=== PATIENT | male | born 2000 | race African-American/Black ===

== ENCOUNTER 2022-12-26 17:09 | Inpatient (IN) | payer OTHER, SELFPAY ==
[2022-12-26 17:00] VITALS: BP 143/74; PULSE 98; RESP 18; TEMP 36.4; O2SAT 100
[2022-12-26 18:19] VITALS: BMI 25.7
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
[2022-12-26] MEDS: OLANZapine 5 MG TABLET PO (21:51)
[2022-12-26] MEDS: traZODone HCL 50 MG TABLET PO (21:51)
[2022-12-26 22:00] VITALS: BP 136/72; PULSE 92; RESP 18; TEMP 36.4; O2SAT 100
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
--- NOTE | 2022-12-27 05:29 | PC.NURSE ---
pt signed a 3 day notice on 12/26. up on 12/31.
[2022-12-27 06:00] VITALS: BP 128/64; PULSE 100; RESP 16; TEMP 36.4; O2SAT 100
[2022-12-27] MEDS: amLODIPine Besylate 10 MG TABLET PO (08:46)
[2022-12-27] MEDS: OLANZapine 10 MG TABLET PO (08:46)
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
[2022-12-27] MEDS: traZODone HCL 50 MG TABLET PO (21:12)
[2022-12-27] MEDS: OLANZapine 5 MG TABLET PO (21:12)
[2022-12-27] MEDS: hydrOXYzine HCL 25 MG TABLET PO (21:20)
[2022-12-28 08:20] VITALS: BP 125/65; PULSE 95; RESP 16; TEMP 36.1; O2SAT 100
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
[2022-12-28 17:57] VITALS: BP 140/65; PULSE 89; TEMP 36.3; O2SAT 100
--- NOTE | 2022-12-28 19:52 | PC.NURSE ---
Patient refused HS dose of Zyprexa 5 mg po. Patient said I'm all set, I don't need them tonight.
[2022-12-29 09:00] VITALS: BP 134/83; PULSE 94; RESP 18; TEMP 35.8; O2SAT 100
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
[2022-12-29 18:00] VITALS: BP 129/86; PULSE 90; TEMP 36.1; O2SAT 98
--- NOTE | 2022-12-29 19:32 | PC.NURSE ---
Patient reported I'm good, I don't need any medications . Refused HS Zyprexa 5 mg po.
--- NOTE | 2022-12-29 20:31 | PC.NURSE ---
Patient declined flu vaccination.
[2022-12-30 06:00] VITALS: BP 150/61; PULSE 87; TEMP 36.6; O2SAT 98
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
[2022-12-30 19:30] VITALS: BP 136/68; PULSE 99; TEMP 36.5; O2SAT 97
--- NOTE | 2022-12-30 19:52 | PC.NURSE ---
Patient refused HS Zyprexa 5 mg po scheduled; he said Dr. Salinas told me I don't have to take medications .
[2022-12-31 08:38] VITALS: BP 130/90; PULSE 92; RESP 16; TEMP 36.2; O2SAT 100
--- NOTE | 2022-12-31 09:18 | PC.NURSE ---
pt refused AM scheduled medications they told me I don't need to take meds
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
== END 2022-12-31 11:39 | disposition home or self-care (01) | DRG 752 ==
PROVIDERS: Admitting Provider Psychiatry & Neurology Psychiatry; Visit Provider Psychiatry & Neurology Psychiatry
DX: F60.2 Antisocial personality disorder (principal); F31.9 Bipolar disorder, unspecified; Z87.820 Personal history of traumatic brain injury

== ENCOUNTER → 2022-12-26 17:09 | Outpatient (BNV) | payer OTHER, SELFPAY | PROVIDERS: Admitting Provider Psychiatry & Neurology Psychiatry; Visit Provider Student in an Organized Health Care Education/Training Program | DX: Z02.2 Encounter for examination for admission to residential institution (principal) | CPT/HCPCS: 99429 ==

== ENCOUNTER → 2022-12-26 17:09 | Outpatient (BNV) | payer OTHER, SELFPAY | PROVIDERS: Admitting Provider Psychiatry & Neurology Psychiatry; Visit Provider Psychiatry & Neurology Psychiatry | DX: F60.2 Antisocial personality disorder (principal); F31.2 Bipolar disorder, current episode manic severe with psychotic features | CPT/HCPCS: 99231; 99232; 99233 ==

== ENCOUNTER 2025-01-04 23:14 | Emergency (ER) | payer OTHER, SELFPAY ==
[2025-01-04 23:22] VITALS: BP 130/61; BP 144/80; PULSE 80; PULSE 92; RESP 16; TEMP 36.4; O2SAT 98; O2SAT 99; BMI 33.1
--- NOTE | 2025-01-04 23:34 | PC.NURSE ---
multiple #'s for contact to [facility] marc called with no answer. unsure what the facility requires for med clearance. 2 #s provided by patient: [phone] online: [phone]
[2025-01-04 23:54] LABS: Hematocrit 38.5 % (42.0-52.0); Hemoglobin 13.4 g/dl (14.0-18.0); Imm Gran Abs Auto 0.03 X10*3/uL (0.00-0.03); Imm Gran Pct Auto 0.5 % (0.0-0.4); Lymphocytes Absolute Auto 2.0 X10*3/uL (1.2-4.9); MANUAL DIFF FLAG NO; Mean Corpuscular HGB Conc 34.8 g/dl (31.0-36.0); Mean Corpuscular Hemoglobin 29.1 pg (27.0-33.0); Mean Corpuscular Volume 83.5 fL (80.0-98.0); NRBC Abs Auto 0.000 X10*3/uL (0.0-0.012); NRBC Pct Auto 0.0 /100WBC (0.0-0.2); Platelet Count 240 X10*3/uL (160-400); Red Blood Count 4.61 X10*6/uL (4.60-5.80); White Blood Count 6.5 X10*3/uL (4.8-10.8)
--- NOTE | 2025-01-04 23:58 | PC.NURSE ---
spoke with forensic medical examiner Araceli at [phone]; stated they need a medical professional to determine if patient is stable to return to [facility]. Jesse OLIVARES made aware and would like to continue with obtaining labs/hansen. pt okay with this. labs and urine obtained. newscast director would like a call back upon d/c ?uber to be sent for patient to be returned.
[2025-01-05 00:14] LABS: Alanine Aminotransferase 38 U/L (0-40); Albumin Level 4.6 g/dL (3.5-5.0); Alkaline Phosphatase 58 U/L (39-117); Anion Gap 11 (12-20); Aspartate Amino Transferase 35 U/L (5-37); Blood Urea Nitrogen 8 mg/dL (9-16); Calcium 9.1 mg/dL (8.4-10.2); Carbon Dioxide 29 mmol/L (22-29); Chloride 108 mmol/L (96-108); Creatinine Clr Calc Pharmacy 158.4; Estimated Glomerular Filt Rate > 60; Potassium 3.7 mmol/L (3.3-5.1); Sodium 144 mmol/L (135-145); Total Protein 7.2 g/dL (6.5-8.0)
[2025-01-05 00:16] LABS: Cannabinoid Screen Urine POSITIVE (Not Detect)
--- NOTE | 2025-01-05 00:18 | ED.GENADULT ---
HPI - General Adult General Chief complaint: ETOH/Substance Use Stated complaint: etoh Time Seen by Provider: 01/04/25 23:50 Source: patient and EMS Mode of arrival: EMS Limitations: no limitations History of Present Illness ED Provider: Jesse OLIVARES HPI narrative: The patient is a 24-year-old male presenting to the ED via EMS for medical evaluation and clearance to remain at his rehab facility. The patient arrived with the ER today for rehab but admitted alcohol and marijuana use, staff found the patient to the ED to be medically cleared to remain at the facility. Patient has no complaints. Related Data Allergies Allergy/AdvReac Type Severity Reaction Status Date / Time No Known Allergies Allergy Verified 01/04/25 23:25 Review of Systems Review of Systems: Yes all other systems are reviewed and are negative PMFSH Past Medical History Medical History (Updated 01/05/25 @ 00:22 by Jesse Brown PA-C) Antisocial personality disorder Bipolar disorder, unspecified Social History Social History Household Members: Family Household Members Other:: Grandmother Housing: House Do you presently have visiting nurse or other home services: No Patient Tobacco Use Status: Refuse Tobacco use screen Second Hand Smoke Exposure: No Substance Use Type: Marijuana Advance Directives: No Do you have a plan to hurt others: No Plan service: No Sexual orientation: Straight/Heterosexual Physical Exam ED Vital Signs: Vital Signs - 24 hr 01/04/25 23:22 Temperature 97.6 F Pulse Rate 92 Respiratory Rate 16 Blood Pressure 130/61 Pulse Oximetry 98 Oxygen Delivery Method Room Air BMI result Body Mass Index 33.1 CONSTITUTIONAL: The patient appears non-toxic, well nourished and in no acute distress. Vital signs as documented. HEAD: Atraumatic, normocephalic. EYES: EOMs grossly intact, pupils equal, conjunctiva clear, no exudate. ENT: Nares patent, no discharge. Airway patent, no audible stridor, visible mucosa is pink and moist without noted lesions. NECK: Trachea is midline, no obvious masses or gross abnormalities. CHEST: Symmetric movement, normal appearance. LUNGS: LS present and CTAB, no w/r/r. Non-labored work of breathing. CARDIAC: Regular Rhythm, S1/S2 appreciated, no murmurs, rubs or gallops. ABDOMEN: Abdomen soft and non-tender x4 quadrants, no palpable masses or organomegaly. : Deferred. EXTREMITIES: Normal tone, moves all extremities spontaneously without reported pain. No obvious acute injury or deformity noted. NEURO: Alert and oriented x3, CN II-XII appear grossly intact. Cerebellar Functioning grossly intact. No obvious sensory or motor deficits. Speech clear and appropriate. PSYCH: normal affect, appropriate eye contact, fluid speech, with appropriate response to questioning. No reported suicidality or homicidality. SKIN: Warm, dry, color appropriate, normal turgor. No rashes noted. Medical Decision Making Medical Decision Making [facility] Narrative: 12:21 AM 01/05/2025 (Elisha OLIVARES): The patient is a 24-year-old male presenting to the ED via EMS for medical evaluation and clearance to remain at his rehab facility. The patient arrived with the ER today for rehab but admitted alcohol and marijuana use, staff found the patient to the ED to be medically cleared to remain at the facility. Patient has no complaints. In the ED patient is well-appearing, no acute findings on exam. Patient's laboratory evaluation is reassuring, no acute findings. Patient is medically cleared and will be discharged to return to his facility. Admission/Observation Consideration of admission/observation: Escalation of care including admission/observation considered Lab Data [facility] Lab Attestation statement: I reviewed the patient's lab results. 01/04/25 23:50 01/04/25 23:50 Labs: Lab Results 01/04/25 01/04/25 Range/Units 23:47 23:50 WBC 6.5 (4.8-10.8) X10*3/uL RBC 4.61 (4.60-5.80) X10*6/uL Hgb 13.4 L (14.0-18.0) g/dl Hct 38.5 L (42.0-52.0) % MCV 83.5 (80.0-98.0) fL MCH 29.1 (27.0-33.0) pg MCHC 34.8 (31.0-36.0) g/dl RDW 14.6 (11.0-16.0) % Plt Count 240 (160-400) X10*3/uL MPV 10.4 (9.4-12.4) fL Immature Gran % (Auto) 0.5 H (0.0-0.4) % Neut % (Auto) 56.5 (45-73) % Lymph % (Auto) 31.1 (20-40) % Josephine % (Auto) 8.8 (2-11) % Eos % (Auto) 2.6 (0-4) % Baso % (Auto) 0.5 (0-2) % Lymph # (Auto) 2.0 (1.2-4.9) X10*3/uL Josephine # (Auto) 0.6 (0.1-1.2) X10*3/uL Eos # (Auto) 0.2 (0.0-0.4) X10*3/uL Baso # (Auto) 0.0 (0.0-0.2) X10*3/uL Abs Immat Gran (auto) 0.03 (0.00-0.03) X10*3/uL Absolute Neuts (auto) 3.7 (2.0-8.3) x10*3/uL Absolute Nucleated RBC 0.000 (0.0-0.012) X10*3/uL Nucleated RBC % (auto) 0.0 (0.0-0.2) /100WBC Sodium 144 (135-145) mmol/L Potassium 3.7 (3.3-5.1) mmol/L Chloride 108 (96-108) mmol/L Carbon Dioxide 29 (22-29) mmol/L Anion Gap 11 L (12-20) BUN 8 L (9-16) mg/dL Creatinine 0.94 (0.5-1.4) mg/dL Estim Creat Clear Calc 158.4 Estimated GFR > 60 Random Glucose 86 (60-115) mg/dL Calcium 9.1 (8.4-10.2) mg/dL Total Bilirubin 0.3 (0.0-1.0) mg/dL AST 35 (5-37) U/L ALT 38 (0-40) U/L Alkaline Phosphatase 58 (39-117) U/L Total Protein 7.2 (6.5-8.0) g/dL Albumin 4.6 (3.5-5.0) g/dL Urine Opiates Screen Not Detected (Not Detect) Ur Buprenorphine Scrn Not Detected (Not Detect) ng/mL Ur Oxycodone Screen Not Detected (Not Detect) ng/mL Urine Methadone Screen Not Detected (Not Detect) ng/mL Urine Fentanyl Screen Not Detected (Not Detect) Ur Barbiturates Screen Not Detected (Not Detect) Ur Phencyclidine Scrn Not Detected (Not Detect) Ur Amphetamines Screen Not Detected (Not Detect) U Benzodiazepines Scrn Not Detected (Not Detect) Urine Cocaine Screen Not Detected (Not Detect) U Marijuana (THC) Screen POSITIVE H (Not Detect) Ethyl Alcohol 106 mg/dL Discharge Plan Discharge Clinical Impression: Alcohol dependence Patient Disposition: Home, Self-Care Instructions: Alcohol Dependence (ED) Additional Instructions: Thank you for choosing [facility] for your care today. Thankfully your laboratory evaluation today is reassuring, there was no evidence of infection, kidney dysfunction, electrolyte imbalance, or anemia. Your vital signs stable and your examination is reassuring. At this time there is no indication for admission to the hospital or continued ED observation, and you are medically cleared to return to your rehab facility. Please follow up with your primary care physician for re-evaluation and continued preventative care. If you do not have a primary care physician, please call the [facility] at [phone] to establish a new primary care physician. While waiting to establish your new primary care physician, you can call our Walk-in [facility] at [phone] for non-emergency needs. Please return to the emergency department if you develop a fever over 100.4 that does not improve with Tylenol or Ibuprofen, recurrent vomiting, or any other new or worsening symptoms or concerns. Print Language: Bangladeshi
[2025-01-05 01:50] VITALS: BP 126/84; PULSE 85; RESP 16; TEMP 36.8; O2SAT 98
== END 2025-01-05 01:03 | disposition home or self-care (01) ==
PROVIDERS: Emergency Provider Emergency Medicine
DX: F10.20 Alcohol dependence, uncomplicated (principal); F12.90 Cannabis use, unspecified, uncomplicated; Z02.83 Encounter for blood-alcohol and blood-drug test
CPT/HCPCS: 36415; 80053; 80307; 85025; 99282; 99283

== ENCOUNTER 2025-01-31 09:29 | Outpatient (AMB) | payer OTHER, SELFPAY ==
[2025-01-31 09:31] VITALS: BP 136/72; PULSE 78; TEMP 36.7; O2SAT 96; BMI 32.4
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
== END 2025-01-31 10:02 | disposition home or self-care (01) ==
LOC: HO.HMCFMS 09:30
PROVIDERS: PCP Student in an Organized Health Care Education/Training Program; Visit Provider Student in an Organized Health Care Education/Training Program
DX: F31.9 Bipolar disorder, unspecified (principal); F60.2 Antisocial personality disorder; F12.90 Cannabis use, unspecified, uncomplicated; Z87.891 Personal history of nicotine dependence; E66.9 Obesity, unspecified; Z23 Encounter for immunization

== ENCOUNTER → 2025-01-31 09:29 | Outpatient (BNVA) | payer OTHER, SELFPAY | PROVIDERS: Visit Provider Student in an Organized Health Care Education/Training Program | DX: Z28.21 Immunization not carried out because of patient refusal (principal); F31.9 Bipolar disorder, unspecified; F60.2 Antisocial personality disorder; F12.90 Cannabis use, unspecified, uncomplicated; E66.9 Obesity, unspecified; Z87.891 Personal history of nicotine dependence; Z68.32 Body mass index [BMI] 32.0-32.9, adult | CPT/HCPCS: 90471; 96127 ==

== ENCOUNTER 2025-02-15 10:14 | Outpatient (REF) | payer OTHER, SELFPAY ==
--- OUTSIDE RECORDS SUMMARY | 2025-02-15 12:03 | XMS_ITS | Clinical Summary ---
Author Organization [facility] ity Address [address] [place] [address] Care Team Providers Care Contact Lens Manufacturer Name Role Phone Unavailable Primary Care Provider Unavailabl e Social History Tobacco Use Types Packs/Day Years Used Date Smoking Tobacco: Never Assessed Sex and Gender Information Value Date Recorded Sex Assigned at Not on file Legal Sex Male 7:41 PM EST Gender Identity Not on file Sexual Orientation Not on file Plan of Treatment Health Maintenance Due Date Last Done Comments HPV Vaccines (1 - Male 3-dos e series) 2017 Meningococcal B Vaccine (1 o f 2 - Standard) 2018 DTaP,Tdap,and Td Vaccines (1 - Tdap) 2021 Hepatitis B Vaccines (1 of 3 - 19+ 3-dose series) 2021 Depression Screening 04/06/2024 COVID-19 Vaccine (1 - 2024-2 6 season) 2024 Influenza Vaccine (#1) 2024 RSV Immunization Adult Patie nts (1 - 1-dose 75+ series) 2077 HIB Vaccines Aged Out No longer eligi ble based on patient's age to complete this topic Hepatitis A Vaccines Aged Out No long er eligible based on patient's age to complete this topic IPV Vaccines Aged Out No longer eligi ble based on patient's age to complete this topic MMR Vaccines Aged Out No longer eligi ble based on patient's age to complete this topic Meningococcal ACWY Vaccine Aged Out N o longer eligible based on patient's age to complete this topic Pneumococcal Vaccine: Pediat rics (0 to 5 Years) and At-Risk Patients (6 to 49 Years) Aged Out No longer eligible b ased on patient's age to complete this topic RSV Immunization Patients Un albert 20 months Aged Out No longer eligible b ased on patient's age to complete this topic Varicella Vaccines Aged Out No longer eligible based on patient's age to complete this topic
[2025-02-15 13:17] LABS: Appearance Urine Turbid; Glucose Urine UA Negative (Negative); PH 6.0 (5.0-9.0); Specific Gravity - Urine >= 1.030 (1.005-1.025); UMIC TRIGGER UACC YES
[2025-02-15 13:21] LABS: UACC Culture Trigger YES
[2025-02-15 14:16] LABS: Alanine Aminotransferase 13 U/L (0-40); Albumin Level 4.9 g/dL (3.5-5.0); Alkaline Phosphatase 77 U/L (39-117); Anion Gap 13 (12-20); Aspartate Amino Transferase 35 U/L (5-37); Blood Urea Nitrogen 19 mg/dL (9-16); Calcium 10.0 mg/dL (8.4-10.2); Carbon Dioxide 27 mmol/L (22-29); Chloride 105 mmol/L (96-108); Cholesterol 134 mg/dL (<200); Estimated Glomerular Filt Rate > 60; HDL Cholesterol 49 mg/dL (>40); Magnesium 1.9 mg/dL (1.6-2.6); Potassium 3.8 mmol/L (3.3-5.1); Sodium 141 mmol/L (135-145); Total Protein 7.7 g/dL (6.5-8.0); Triglycerides 60 mg/dL (<150)
[2025-02-15 15:03] LABS: Folate 7.2 ng/mL (> or = 4.0); Vitamin B12 238 pg/mL (200-900)
[2025-02-16 04:06] LABS: HBS Num1 291.49 mIU/mL (0-7.99); HBsAGNum1 0.42 S/CO (0.00-0.99); HIV Num 1 0.08 S/CO (0.00-0.99); Hepatitis B Surface Antigen Negative (Negative); ~HepC Num1 0.09 S/CO (0.00-0.79); ~Hepatitis B Surface Antibody REACTIVE (Nonreactive); ~Hepatitis C Antibody Nonreactive (Nonreactive)
[2025-02-19 14:58] LABS: VITAMIN D (1,25 OH) D3 31 pg/mL; Vit D (1,25-Dihydroxy) Total 31 pg/mL (18-72); Vitamin D (1,25 OH) D2 <8 pg/mL
== END 2025-02-15 10:15 | disposition home or self-care (01) ==
LOC: HO.HKASLDS 10:14
PROVIDERS: PCP Student in an Organized Health Care Education/Training Program; Visit Provider Student in an Organized Health Care Education/Training Program
DX: Z13.6 Encounter for screening for cardiovascular disorders (principal); Z13.1 Encounter for screening for diabetes mellitus; Z13.89 Encounter for screening for other disorder; Z11.4 Encounter for screening for human immunodeficiency virus [HIV]; Z20.6 Contact with and (suspected) exposure to human immunodeficiency virus [HIV]
CPT/HCPCS: 36415; 80053; 80061; 81001; 81003; 82607; 82652; 82746; 83036; 83735; 86706; 86803; 87086; 87340; 87389

== ENCOUNTER 2025-03-01 10:38 | Outpatient (AMB) | payer OTHER, SELFPAY ==
--- NOTE | 2025-03-01 10:43 | A.OFFPC_ITS ---
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 I provided a detailed explanation regarding the procedure, including the use of local anesthesia in the form of a penile nerve block to numb the area. I described the simplicity and speed of the procedure, which can be performed in an office setting. The patient demonstrated understanding of the explanation, including the potential need for a referral to urology for further evaluation and procedural planning. Patient was informed and verbally consented to the use of an ambient scribe for clinic note documentation during this visit. History of Present Illness The patient is a 24-year-old male presenting with inquiries about circumcision and review of lab results. Low-Normal Vitamin B12 Level: The patient had recent laboratory work which revealed a vitamin B12 level of 238, categorizing it as low-normal. This finding was presented during the lab review discussion. The patient did not report specific symptoms directly attributed to this vitamin level during the conversation, apart from possible fatigue and weakness noted elsewhere. Substance Use In Remission: The patient disclosed a prior history of marijuana and opioid use; however, he stated he is no longer using these substances. The patient did not report any ongoing issues related to substance withdrawal or cravings during the visit. Surgical History: - No surgeries reported by the patient. Social History: - The patient resides with their grandmo ther. - The patient reported previous use of m arijuana and opioids but stated he is no longer engaging in their use. Diagnostic Results: - Labs: - Vitamin B12 level: 238 (low no rmal) Review of Systems - General: Reports fatigue and weakness. 10-point ROS reviewed and negative excep t as noted in HPI Past Medical History - Previous history of marijuana and opio id use. Health Maintenance - Consideration for circumcision referra l to urology as per patient?s expressed interest and discussion. Physical Exam General: Well-appearing, in no acute distress. Vital signs: Within normal limits. HEENT: Normocephalic, atraumatic. PERRLA, EOMI. Conjunctiva clear, sclera anicteric. Oropharynx clear, mucous membranes moist. TMs intact bilaterally. Neck: Supple, no lymphadenopathy, no thyromegaly, no JVD or carotid bruits. Cardiovascular: RRR, normal S1/S2, no murmurs, rubs, or gallops. Peripheral pulses 2+ and symmetric. No edema. Respiratory: Lungs clear to auscultation bilaterally, no wheezes, rales, or rhonchi. Normal effort. Abdomen: Soft, non-tender, non-distended. Normoactive bowel sounds. No hepato splenomegaly, no masses. MSK: Full range of motion, no joint swelling or deformity. Normal gait. Skin: Warm, dry, intact. No rashes, lesions, or pallor. Neuro: Alert and oriented x3. Cranial nerves II-XII intact. Strength 5/5 throughout. Sensation intact. Reflexes 2+ symmetric. Normal coordination and gait. Psych: Appropriate mood and affect. Normal judgment and insight. Reports past use of marijuana and opioids, but states he is no longer smoking. Plan 1. Low-Normal Vitamin B12 Level - Vitamin B12 supplementation prescribed , to be taken daily, to address potential fatigue and weakness. 2. Substance Use In Remission - No additional interventions required a s the patient reports cessation. Monitoring for any signs of relapse in subsequent visits. Discussion Notes I discussed with the patient the low-normal vitamin B12 level observed in recent laboratory tests. I explained the potential symptomatology related to this finding, including feelings of fatigue, and advised vitamin B12 supplementation to rectify levels. The patient was agreeable to this plan, and a prescription was provided. Additionally, the patient expressed interest in circumcision; I explained the procedure, including the anesthesia involved and possible referral to urology for assessment and scheduling. The patient was advised that the referral process may vary in timing. A follow-up visit in six months is recommended to reassess vitamin levels and discuss any further plans. Patient Instructions - Take one vitamin B12 tablet every nigh t as prescribed. - Consider scheduling a follow-up visit for vitamin level reassessment and further discussion of circumcision. - Remain observant for any symptoms rela leopoldo to vitamin deficiency, such as weakness or fatigue. Medical Decision Making The patient presented for a review of laboratory results showing a low-normal vitamin B12 level, accompanied by inquiries about circumcision. Given the low- normal vitamin B12 level of 238, I prescribed oral vitamin B12 supplementation to mitigate symptoms of weakness and fatigue. The patient's previous substance use history is noted, with his self-reported cessation negating the need for immediate intervention. The discussion also addressed the patient's interest in circumcision, where I provided insight into the procedure and its requirements, suggesting a potential referral to urology for surgical evaluation. The patient was informed to follow up in six months for further monitoring and discussions as needed. Total Time Statement 20 min Total time spent caring for the patient today includes pre-visit chart review, documentation, review of laboratory and diagnostic imaging results, medication reconciliation, medically necessary evaluation, counseling on diagnoses, care coordination, ordering appropriate tests and medications, review of tests performed by other providers, reporting test results to the patient, and communication with other healthcare providers. [facility] Medical History (Updated 03/01/25 @ 11:04 by Franky Tee MD) Male circumcision Former substance use Low vitamin B12 level Phimosis Antisocial personality disorder Bipolar disorder, unspecified Family History Mother No problems noted. Father No problems noted. Maternal Grandmother HTN (hypertension) Social History Household Members: Family Household Members Other:: Grandmother Housing: House Do you presently have visiting nurse or other home services: No Patient Tobacco Use Status: Refuse Tobacco use screen e-Cigarette/Vaping Use: Never Used Second Hand Smoke Exposure: No Substance Use Type: Marijuana service: No Current occupational status: unemployed Sexual orientation: Straight/Heterosexual Cognitive needs: No Hearing needs: No Vision needs: No Questionnaire Thrive Questionnaire Date Thrive assessed: 01/31/25 I am a: Patient What is your living situation today?: I do not have a steady places to live I am temporarily staying with others Within the past 12 months, did the food you bought not last and you didn't have the money to get more?: I choose not to answer this question Within the past 12 months, did you worry whether your food would run out before you got money to buy more?: I choose not to answer this question Do you have trouble paying for medicines?: No Do you have trouble getting transportation to medical appointments?: No Do you have trouble paying your heating and electricity bill?: No Do you have trouble taking care of your child, family member or friend?: No Do you have trouble with day-to-day activities such as bathing, preparing meals, shopping, managing finances, etc.?: I choose not to answer this question Are you currently unemployed and looking for a job?: Yes Are you interested in more education?: Yes Currently or been in a relationship where the following occur: No concerns reported THRIVE Score: 1 KIET-7 AMB Questionnaire KIET-7 Date KIET - 7 assessed: 01/31/25 Source: Developed by Drs. Rom Roque, Heidy Joyner, Ronnie Darnell and colleagues, with an educational sahil from [employer]. Review of Systems Narrative Review of Systems - General: Reports fatigue and weakness. 10-point ROS reviewed and negative except as noted in HPI Physical exam (Primary Care) Vital Signs: Last Vital Signs Temp 97.7 F 03/01/25 10:47 Pulse 70 03/01/25 10:47 Resp 16 03/01/25 10:47 BP 122/72 03/01/25 10:47 Pulse Ox 98 03/01/25 10:47 Oxygen Delivery Method Room Air 03/01/25 10:47 BMI result Body Mass Index 30.9 Tobacco/Smoking Status: Tobacco use Status Tobacco use date assessed 01/31/25 03/01/25 10:45 Patient Tobacco Use Status Refuse Tobacco use screen 03/01/25 10:45 e-Cigarette/Vaping Use Never Used 03/01/25 10:49 Thrive Assessment: Date of Thrive Assessment Date Thrive assessed 01/31/25 03/01/25 10:45 Currently or been in a relationship where the following occur: No concerns reported Narrative Physical Exam General: Well-appearing, in no acute distress. Vital signs: Within normal limits. HEENT: Normocephalic, atraumatic. PERRLA, EOMI. Conjunctiva clear, sclera anicteric. Oropharynx clear, mucous membranes moist. TMs intact bilaterally. Neck: Supple, no lymphadenopathy, no thyromegaly, no JVD or carotid bruits. Cardiovascular: RRR, normal S1/S2, no murmurs, rubs, or gallops. Peripheral pulses 2+ and symmetric. No edema. Respiratory: Lungs clear to auscultation bilaterally, no wheezes, rales, or rhonchi. Normal effort. Abdomen: Soft, non-tender, non-distended. Normoactive bowel sounds. No hepatosplenomegaly, no masses. MSK: Full range of motion, no joint swelling or deformity. Normal gait. Skin: Warm, dry, intact. No rashes, lesions, or pallor. Neuro: Alert and oriented x3. Cranial nerves II-XII intact. Strength 5/5 throughout. Sensation intact. Reflexes 2+ symmetric. Normal coordination and gait. Psych: Appropriate mood and affect. Normal judgment and insight. Reports past use of marijuana and opioids, but states he is no longer smoking. Coding Level of Care Code Est Pt Level 3 (11990) Diagnoses Low vitamin B12 level R79.89 Former substance use F19.91 Male circumcision Z41.2 Assessment & Plan Assessment & Plan (1) Low vitamin B12 level: Code(s): R79.89 - Other specified abnormal findings of blood chemistry Category: Medical (2) Former substance use: Code(s): F19.91 - Other psychoactive substance use, unspecified, in remission Category: Medical (3) Male circumcision: Code(s): Z41.2 - Encounter for routine and ritual male circumcision Category: Medical Plan Orders: Referrals Urology Referral N47.1 - Phimosis Medications: New mecobalamin (vitamin B12) place tablet under tongue and allow to dissolve for at least30 secs before swallowing 1,000 mcg sublingual BEDTIME 90 tabs 0RF
[2025-03-01 10:47] VITALS: BP 122/72; PULSE 70; RESP 16; TEMP 36.5; O2SAT 98; BMI 30.9
--- OUTSIDE RECORDS SUMMARY | 2025-03-01 12:48 | XMS_ITS | Clinical Summary ---
Author Organization [facility] ity Address [address] [place] [address] Care Team Providers Care Mainframe Systems Administrator Name Role Phone Unavailable Primary Care Provider [...]
== END 2025-03-01 11:04 | disposition home or self-care (01) ==
LOC: HO.HMCFMS 10:38
PROVIDERS: PCP Family Medicine; Visit Provider Student in an Organized Health Care Education/Training Program
DX: R79.89 Other specified abnormal findings of blood chemistry (principal); F19.91 Other psychoactive substance use, unspecified, in remission; Z41.2 Encounter for routine and ritual male circumcision